=== PATIENT | female | born 1945 | race Caucasian/White ===

== ENCOUNTER → 2017-02-02 | Outpatient (CLI) | payer MEDICARE ==
[~2017-02-02] MED LIST: AMBIEN PO; DIOVAN PO; FENOFIBRATE145 M1 PO; FENOFIBRATE145 MG PO; FOLIC ACID PO; GLIPIZIDE XL5 MG; GLUCOTROL PO; LIPITOR PO; LIPITOR80 MG PO; LOPRESSOR PO; METFORMIN HCL500 M1 PO; MORPHINE IR PO; OPANA ER20 M1 PO; OXYCODONE HCL15 MG PO; OYSTER CALCIUM500 MG PO; PATIENT'S PHARMACY; PERCOCET5/325 PO; PERCOCET7.5 PO; TOPROL XL50 MG PO; TRAZODONE PO; TRICOR PO; TYLOX 5/500 CAP1 CAP PO; ZITHROMAX PO; ZOLOFT PO; ZOLOFT100 MG PO
--- NOTE | ~2017-02-02 | US24 ---
[facility] A Service of [facility] & [facility] RADIOLOGY TEXT RESULTS PATIENT: ANGELINE CALHOUN LOCATION: [facility] : 47 UNIT #: [id number] AGE: [address]: Yuan Cornejo MD SEX: F ORDER DR: [id number] [facility] [address] [place], [place] [address] [id number] O MR#: [id number] Acc #: [id number] NAME: ANGELINE CALHOUN : 1945 SEX: F STUDY DATE/TIME: 02/02/2017 11:01 UNIT: [facility] ROOM: STUDY DESCRIPTION: US Breast Unilateral Attending Physician: Yuan Cornejo M.D. Referring Physician: Yuan Cornejo M.D. Ordering Physician: Yuan Cornejo M.D. Primary Care Physician: Yuan Cornejo M.D. MEDICAL IMAGING REPORT This report is preliminary unless electronic signature is present EXAM Targeted ultrasound right breast 02/02/2017. FINDINGS Please see diagnostic mammogram, 02/02/2017, for results. BIRADS: 2 Benign finding. Dictated by... Rene Cosby M.D. THIS IS AN ELECTRONICALLY VERIFIED REPORT Rene Cosby M.D. at 02/03/2017 2:37 PM Annie TD: 02/02/2017 16:47 JOB #: [id number] MEDICAL IMAGING REPORT Page 1 of 1 COPY
--- NOTE | ~2017-02-02 | MY26 ---
[facility] A Service of [facility] & [facility] RADIOLOGY TEXT RESULTS PATIENT: ANGELINE CALHOUN LOCATION: [facility] : 47 UNIT #: [id number] AGE: [address]: Yuan Cornejo MD SEX: F ORDER DR: [id number] [facility] [address] [place], [place] [address] [id number] O MR#: [id number] Acc #: [id number] NAME: ANGELINE CALHOUN : 1945 SEX: F STUDY DATE/TIME: 02/02/2017 10:11 UNIT: [facility] ROOM: STUDY DESCRIPTION: [facility] DIAGNOSTIC W/ CAD BILAT Attending Physician: Yuan Cornejo M.D. Referring Physician: Yuan Cornejo M.D. Ordering Physician: Yuan Cornejo M.D. Primary Care Physician: Yuan Cornejo M.D. MEDICAL IMAGING REPORT This report is preliminary unless electronic signature is present EXAM Bilateral digital diagnostic mammogram with CAD and targeted right breast ultrasound 02/02/2017. INDICATIONS 71-year-old female with a 24-pound weight loss. History of melanoma but no personal or family history of breast cancer. No prior breast surgeries. She complains of sharp pain intermittently through the nipple for the past month or so. She denies a palpable abnormality. TECHNIQUE CC, MLO and true lateral views of the right breast were obtained and reviewed with an approved FDA-CAD device. Standard screening views were obtained on the left. Targeted ultrasound right breast also performed in the area of pain symptoms. COMPARISON 01/18/2011, 10/26/2008 FINDINGS Mammography findings: Breast parenchyma is heterogeneously dense. This degrades sensitivity of screening mammography. The pattern is unchanged. There is no new dominant nodule mass or suspicious cluster of microcalcifications. There is mildly asymmetrically prominent fibroglandular tissue in the upper hemisphere of the right breast localizing medially and laterally. No new adenopathy or skin thickening. Mild ductal ectasia bilaterally unchanged. Targeted ultrasound of the area of patient pain symptoms on the right was thereafter performed. Ultrasound findings: [facility] A Service of [facility] & [facility] RADIOLOGY TEXT RESULTS PATIENT: ANGELINE CALHOUN LOCATION: [facility] : 47 UNIT #: [id number] AGE: [address]: Yuan Cornejo MD SEX: F ORDER DR: Right breast: The patient was initially scanned independently by the technologist and then rescanned in my presence. I also personally scanned the patient. Limited physical exam (with patient consent) of the area of patient pain symptoms was negative demonstrating no distinct solid nodule. Targeted ultrasound of the right breast was performed in the area of patient pain symptoms. It is primarily localized to the subareolar aspect of the right breast and the upper outer quadrant. Imaging demonstrates prominent ducts in the subareolar right breast without intraluminal filling defect or other suspicious finding. There is dense breast tissue in the upper outer quadrant right breast most conspicuously at the 10 o'clock position where there are also prominent ducts present without additional suspicious feature. This is best demonstrated under real-time surveillance. There is no focal mass or persistent area of abnormal shadowing. The submitted images by the technologist demonstrate coalescence of ducts but under real-time surveillance, there was no focal mass. Imaging findings between mammography and ultrasound are concordant. Absent new or worsening symptoms in either breast, return to an annual screening regimen is recommended. Findings and recommendations were discussed with the patient. She voiced understanding and agreement. IMPRESSION Benign bilateral diagnostic mammogram and targeted right breast ultrasound. Clinical considerations to determine additional imaging at this time. See discussion above. Return to annual screening recommended. Patient's over the age of 40 are entered into a reminder system with target due date for the next mammogram. A result letter will be sent to the patient. BIRADS: 2 Benign findings. Dictated by... Rene Cosby M.D. THIS IS AN ELECTRONICALLY VERIFIED REPORT Rene Cosby M.D. at 02/02/2017 5:01 PM ANÍBAL/jaclyn TD: 02/02/2017 16:35 JOB #: [id number] MEDICAL IMAGING REPORT Page 1 of 1 COPY
== END | disposition home or self-care (01) ==
LOC: CMAM 01-22 12:00
DX: N64.4 Mastodynia (principal)
CPT/HCPCS: 76641; G0204

== ENCOUNTER 2017-02-19 06:26 | Observation (INO) | payer MEDICARE ==
[~2017-02-19] VITALS: Ht 167.6 cm; Wt 47.5 kg
--- NOTE | ~2017-02-19 | OR ---
Unit #: [id number] #: [id number] Patient: ANGELINE CALHOUN [id number] [address] [address] [id number] I MR#: [id number] NAME: ANGELINE CALHOUN ROOM: 476 Date of Procedure: 02/19/2017 Admission Date: 02/19/2017 Surgeon: Jonathan Thompson M.D. : 1945 Attending Physician: Jonathan Thompson M.D. Primary Care Physician: Generic Doctor Not In System OPERATIVE REPORT PREOPERATIVE DIAGNOSIS Intractable pain. PROCEDURES PERFORMED Placement of spinal catheter for pain pump trial with fluoroscopic guidance and intravenous sedation. DESCRIPTION OF PROCEDURE The patient was placed in a seated position. Standard monitors were applied. 2 mg of Versed were given for sedation and anxiolysis, which were adequate. Vital signs remained stable. Sterile prep and drape then of the lumbar area was performed. The skin then at the L3-L4 level was localized with 1% lidocaine. An 18-gauge [employer]tead needle was then advanced via loss of resistance technique and fluoroscopic guidance in toward the epidural space. After entering the epidural space, an epidural catheter was easily threaded approximately 10 cm into the epidural space. Radiographic contrast was used to confirm proper positioning along with fluoroscopy. After this was confirmed, a dose of 1 mg of preservative-free morphine was injected via the catheter. The catheter was then securely fastened and sterilely dressed and the patient was discharged to recovery room, where an infusion will be started of preservative-free morphine. Dictated by... Bossman Null/florinda TD: 03/27/2017 17:33 JOB #: [id number] OPERATIVE REPORT Page 1 of 1 X Jonathan Thompson MD X PROCEDURE OPERATIVE NOTE
--- NOTE | ~2017-02-19 | DS ---
Unit #: [id number] #: [id number] Patient: ANGELINE CALHOUN [id number] [address] [address] [id number] I MR#: [id number] NAME: ANGELINE CALHOUN. ROOM: [facility] Age: 71 Sex: F Admission Date: 02/19/2017 : 1945 Discharge Date: Attending Physician: Jonathan Thompson M.D. Primary Care Physician: Generic Doctor Not In System DISCHARGE SUMMARY HISTORY The patient is a 71-year-old female placed in observation after placement of left oral catheter for a trial of intrathecal morphine pump. The patient had a catheter placed in the OR and started initial infusion of 0.4 mg per hour to assist patient to control her pain. This infusion was increased to 0.8 mg per hour, antrum 1 mg bolus. At this dosage the patient had nearly 100% symptom relief in regards to her chronic pain issues. She had no side effects including nausea, vomiting, sedation, pruritus, urinary retention, or headache. Her sleep was without issues but unable to ambulate. She does not require any breakthrough medications. The patient discussed a trial if her catheter is removed. The patient is to ne discharged home. 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 SECONDARY DIAGNOSES 1. Coronary artery disease. 2. Hypertension. 3. Acid reflux. 4. Kidney stones. 5. Noninsulin dependence. 6. Anxiety. 7. Degenerative joint disease. 8. Infusion rate was 0.8 mg/mL of (1) free morphine in the trial catheter. Dictated by... Bossman Null/lorena TD: 02/20/2017 08:52 JOB #: [id number] Unit #: [id number] #: [id number] Patient: ANGELINE CALHOUN DISCHARGE SUMMARY Page 1 of 1 X Jonathan Thompson MD X DISCHARGE SUMMARY
== END 2017-02-20 11:02 | disposition home or self-care (01) ==
LOC: CSUR 06:26 → C4C 08:47 → CSUR 08:47 → CPACUOF 08:47 → CSUR 08:55 → CPACUOF 08:55 → C4C 09:55
DX: M96.1 Postlaminectomy syndrome, not elsewhere classified (principal); I25.10 Atherosclerotic heart disease of native coronary artery without angina pectoris; I10 Essential (primary) hypertension; K21.9 Gastro-esophageal reflux disease without esophagitis; N20.0 Calculus of kidney; F41.9 Anxiety disorder, unspecified; F17.210 Nicotine dependence, cigarettes, uncomplicated; Z86.711 Personal history of pulmonary embolism; Z95.5 Presence of coronary angioplasty implant and graft; Z88.8 Allergy status to other drugs, medicaments and biological substances; Z91.040 Latex allergy status
CPT/HCPCS: 76000; 82947; 96374; 96376; G0378; J2274; J2310